=== PATIENT | male | born 1985 | race Caucasian/White ===

== ENCOUNTER 2020-12-23 13:28 | Outpatient (CLI) | payer BC | END 2020-12-23 13:29 | disposition home or self-care (01) | LOC: DTY/OP 13:28 | PROVIDERS: ATTEND Surgery | DX: I10 Essential (primary) hypertension (principal); Z68.42 Body mass index [BMI] 45.0-49.9, adult | CPT/HCPCS: 97802 ==

== ENCOUNTER 2021-03-23 15:11 | Outpatient (CLI) | payer BC | END 2021-03-23 15:12 | disposition home or self-care (01) | LOC: BICRAD 15:11 | PROVIDERS: ATTEND Internal Medicine | DX: M25.562 Pain in left knee (principal) ==